=== PATIENT | male | born 1940 | race Caucasian/White ===

== ENCOUNTER 2021-06-30 16:09 | Emergency (ER) | payer MEDICARE ==
[2021-06-30 18:29] LABS: ALT (SGPT) 30 U/L (8-55); AST (SGOT) 29 U/L (5-34); Albumin 3.8 g/dL (3.4-4.8); Alkaline Phosphatase 66 U/L (40-110); Anion Gap 14 mmol/L (10-20); BUN (Urea Nitrogen) 17 mg/dL (8.4-25.7); Bilirubin, Total 0.5 mg/dL (0.2-1.2); Calc. Creatinine Clearance 0 mL/min (70-130); Calcium 9.5 mg/dL (7.8-10.44); Carbon Dioxide 25 mmol/L (23-31); Chloride 100 mmol/L (98-107); Globulin 3.5 g/dL (2.4-3.5); Glucose 102 mg/dL (83-110); Potassium 4.1 mmol/L (3.5-5.1); Protein, Total 7.3 g/dL (5.8-8.1); Sodium 135 mmol/L (136-145)
[2021-06-30 19:05] LABS: Hemoglobin 15.9 g/dL (13.5-17.5); Mean Corpuscular HGB CONC 32.5 g/dL (32.0-36.0); Mean Corpuscular Hemoglobin 28.2 pg (27.0-33.0); Mean Corpuscular Volume 86.9 fl (81.2-95.1); Mean Platelet Volume 10.2 fl (7.4-10.4); Platelet Count 174 10x3/uL (150-450); RBC Distribution Width 13.2 % (11.5-14.5); Red Blood Cell (RBC) Count 5.63 10x6/uL (4.32-5.72); White Blood Cell (WBC) Count 6.5 10x3/uL (3.5-10.5)
[2021-06-30 19:47] LABS: MDiff Complete? YES
[2021-06-30 19:51] LABS: Eosinophils 6 % (0-10); Lymphocytes 13 % (21-51); Monocytes 18 % (0-10); Neutrophil 62 % (42-75); Reactive Lymphocytes 1 % (0-10)
[2021-06-30 19:52] LABS: Platelet Morphology Comment Appears Adequate
[2021-07-01 13:41] LABS: SARS-CoV-2 PCR by NAA Not Detected (NotDetected)
== END 2021-06-30 20:21 | disposition home or self-care (01) ==
LOC: CSHERS 16:09
DX: J18.9 Pneumonia, unspecified organism (principal); Z20.822 Contact with and (suspected) exposure to COVID-19; I10 Essential (primary) hypertension; E03.9 Hypothyroidism, unspecified
CPT/HCPCS: 71045; 80053; 83605; 83880; 84484; 85025; 93005; U0003; U0005

== ENCOUNTER 2021-10-04 13:23 | Emergency (ER) | payer OTHER ==
[2021-10-04] MEDS ORDERED: Boostrix 0.5 ML (Tdap) VIAL ONE ×2 (15:10→15:12)
[2021-10-04] MEDS ORDERED: Ketorolac Tromethamine 30 MG/ML VIAL ONE (15:10)
== END 2021-10-04 16:00 | disposition home or self-care (01) ==
LOC: CSHERS 13:23
DX: S51.812A Laceration without foreign body of left forearm, initial encounter (principal); S00.93XA Contusion of unspecified part of head, initial encounter; I49.8 Other specified cardiac arrhythmias; E03.9 Hypothyroidism, unspecified; I10 Essential (primary) hypertension; W01.198A Fall on same level from slipping, tripping and stumbling with subsequent striking against other object, initial encounter; Z23 Encounter for immunization
CPT/HCPCS: 70450; 90471; 90715; 93005; 96372; J1885

== ENCOUNTER 2022-02-10 13:43 | Emergency (ER) | payer OTHER ==
[2022-02-10 15:02] LABS: Hemoglobin 15.9 g/dL (13.5-17.5); Mean Corpuscular HGB CONC 34.6 g/dL (32.0-36.0); Mean Corpuscular Hemoglobin 29.3 pg (27.0-33.0); Mean Corpuscular Volume 84.9 fl (81.2-95.1); Platelet Count 200 10x3/uL (150-450); RBC Distribution Width 14.3 % (11.5-14.5); Red Blood Cell (RBC) Count 5.42 10x6/uL (4.32-5.72); White Blood Cell (WBC) Count 6.6 10x3/uL (3.5-10.5)
[2022-02-10 15:05] LABS: MDiff Complete? YES
[2022-02-10 15:10] LABS: ALT (SGPT) 24 U/L (8-55); AST (SGOT) 28 U/L (5-34); Alkaline Phosphatase 60 U/L (40-110); Anion Gap 15 mmol/L (10-20); BUN (Urea Nitrogen) 19 mg/dL (8.4-25.7); Bilirubin, Total 0.5 mg/dL (0.2-1.2); Calc. Creatinine Clearance 0 mL/min (70-130); Calcium 8.7 mg/dL (7.8-10.44); Carbon Dioxide 25 mmol/L (23-31); Chloride 101 mmol/L (98-107); Glucose 87 mg/dL (83-110); Potassium 3.5 mmol/L (3.5-5.1); Sodium 137 mmol/L (136-145)
[2022-02-10 15:35] LABS: Manual Diff?? YES
[2022-02-10 15:54] LABS: Lymphocytes 7 % (21-51); Monocytes 20 % (0-10); Neutrophil 67 % (42-75); Reactive Lymphocytes 6 % (0-10)
[2022-02-10 15:55] LABS: Diff Comment (RBC Morph SCRN) NORMAL; Platelet Morphology Comment Appears Adequate
[2022-02-10 17:11] LABS: SARS-CoV-2 NAA Rapid Test Not Detected (NotDetected)
== END 2022-02-10 17:38 | disposition home or self-care (01) ==
LOC: CSHERS 13:43
DX: J10.1 Influenza due to other identified influenza virus with other respiratory manifestations (principal); I10 Essential (primary) hypertension; E03.9 Hypothyroidism, unspecified; Z20.822 Contact with and (suspected) exposure to COVID-19
CPT/HCPCS: 71045; 80053; 83880; 84484; 85025; 87804; 93005; U0002; U0003; U0005